=== PATIENT | female | born 1995 | race Caucasian/White ===

== ENCOUNTER 2020-12-31 12:36 | Outpatient (CLI) | payer OTHER, SELFPAY ==
[2020-12-31 13:12] LABS: Add Urine Microscopic? YES; Amorphous Sediment Urine Few; Appearance Urine Clear (Clear); Bacteria Urine Trace /hpf; Bilirubin Urine Negative (Negative); Blood Urine 2+ (Negative); Color Urine Amber (Yellow); Glucose Urine UA Negative (Negative); Ketones Urine Negative (Negative); Leukocyte Esterase Ur 1+ LEU/UL (NEGATIVE); Mucus Urine Rare /lpf; Nitrate Urine Positive (Negative); Protein Urine 1+ mg/dL (Negative); RBC Urine 21-50 /hpf (0-2); Specific Grav Ur 1.013 (1.001-1.035); Squamous Epithelial Cell Urine Rare /hpf (Few); WBC Urine 51-75 /hpf (0-3)
== END 2020-12-31 12:37 | disposition home or self-care (01) ==
LOC: ANHLAB 12:45
PROVIDERS: PCP Physician Assistant; Visit Provider Physician Assistant
DX: R31.9 Hematuria, unspecified (principal)
CPT/HCPCS: 81001; 87077; 87086; 87088; 87186

== ENCOUNTER → 2021-06-04 08:25 | Outpatient (CLI) | payer OTHER, SELFPAY ==
[2021-06-05 14:05] LABS: SARS-CoV-2 RNA PCR Positive
== END ==
PROVIDERS: PCP Physician Assistant; Visit Provider Physician Assistant
DX: U07.1 COVID-19 (principal)
CPT/HCPCS: C9803; U0003; U0005

== ENCOUNTER 2021-10-18 16:48 | Emergency (ER) | payer OTHER, SELFPAY ==
[2021-10-18 17:01] VITALS: BP 124/78; PULSE 88; RESP 16; TEMP 36.8; O2SAT 100
--- NOTE | 2021-10-18 17:25 | ED.FEMALEGU ---
HPI - Female Genitourinary General Chief complaint: Urogenital-Female Stated complaint: UTI Time Seen by Provider: 10/18/21 17:25 Source: patient Mode of arrival: ambulatory Limitations: no limitations History of Present Illness HPI Narrative: 26-year-old female presents with complaint of urinary frequency, urgency, dysuria since yesterday. Reports history of UTIs approximately every 3 to 6 months. States she only takes Macrobid for her UTIs due to penicillin and sulfa allergies. Denies fever chills. Denies back and abdominal pain. No nausea vomiting diarrhea. No concern for . All systems reviewed and negative except as noted. Related Data Home Medications Medication Instructions Recorded Confirmed norethin-ethinyl estradiol-iron 1 tablet PO DAILY 12/31/20 10/18/21 0.8 mg-25 mcg(24)/75 mg(4) chew tablet Allergies Allergy/AdvReac Type Severity Reaction Status Date / Time Sulfa (Sulfonamide Allergy Mild hives Verified 10/18/21 17:25 Antibiotics) ciprofloxacin Allergy Unknown unknown Verified 10/18/21 17:25 Penicillins Allergy Unknown unkown Verified 10/18/21 17:25 Review of Systems Review of Systems: CONSTITUTIONAL: Denies fever, chills, or sweats. EYES: Denies visual changes, redness, or discharge. ENT: Denies rhinorrhea, congestion, sore throat, or otalgia. CARDIOVASCULAR: Denies chest pain, palpitations, or edema. RESPIRATORY: Denies cough or dyspnea. GASTROINTESTINAL: Denies abdominal pain, nausea, vomiting, or diarrhea. GENITOURINARY: Reports dysuria, frequency and urgency. Denies hematuria. SKIN: Denies rash or itching. MUSCULOSKELETAL: Denies back pain, joint pain, or myalgia. NEUROLOGIC: Denies headache, numbness, or weakness. PSYCHIATRIC: Denies anxiety or depression. All other systems reviewed are negative, except as documented in HPI. [facility] Past Medical History Medical History Migraine Family History Family History Father Family history of diabetes mellitus in first degree relative Hypertension Sibling Anxiety Depression Other Diabetes mellitus Social History Social History (Reviewed 12/31/20 @ 11:53 by FRANCESCO Swenson Smoking status: Never smoker Second hand tobacco smoke exposure: No Alcohol intake: current Substance use: unknown Comments At time of signature, agree with nursing past medical, surgical, social and family history. There is no relevant family history pertinent to the presenting complaint. Exam Narrative: GENERAL: This is a well-nourished, well-developed patient, in no apparent distress. HEAD: normocephalic, atraumatic. EYES: PERRL. Sclera clear/white. Vision is grossly intact. EARS: External ears normal NOSE: External nose normal NECK: Neck supple, non-tender without lymphadenopathy, masses or thyromegaly. CARDIOVASCULAR: Regular rate and rhythm without murmurs, gallops, or rubs. RESPIRATORY: Clear to auscultation. Breath sounds equal bilaterally. No wheezes, rales, or rhonchi. SKIN: warm, Dry, intact with no suspicious lesions or rash, good texture and turgor. NEURO: awake, alert, and oriented to person, place and time. There were no obvious focal neurologic abnormalities. EXTREMITIES: Normal range of motion of all extremities. BACK: Nontender without deformity. No CVA tenderness. Course Course Level of Care: Express Care Visit Vital Signs Vital signs: Vital Signs Temperature 36.8 C 10/18/21 17:01 Pulse Rate 88 10/18/21 17:01 Respiratory Rate 16 10/18/21 17:01 Blood Pressure 124/78 10/18/21 17:01 Pulse Oximetry 100 10/18/21 17:01 Temperature 36.8 C 10/18/21 17:01 Pulse Rate 88 10/18/21 17:01 Respiratory Rate 16 10/18/21 17:01 Blood Pressure 124/78 10/18/21 17:01 Pulse Oximetry 100 10/18/21 17:01 Reviewed MDM - Female Genitourinary MDM Narrative Medical deci
== END 2021-10-18 17:33 | disposition home or self-care (01) ==
PROVIDERS: Emergency Provider Nurse Practitioner Family; PCP Internal Medicine
DX: N39.0 Urinary tract infection, site not specified (principal)
CPT/HCPCS: 81003; 87086; 87088; 99213; G0463

== ENCOUNTER 2021-12-08 11:28 | Outpatient (CLI) | payer OTHER, SELFPAY ==
[2021-12-08 11:49] LABS: Appearance Urine Slightly Cloudy (Clear); Bilirubin Urine Negative (Negative); Blood Urine 3+ (Negative); Glucose Urine UA Negative (Negative); Ketones Urine Negative (Negative); Leukocyte Esterase Ur 3+ LEU/UL (NEGATIVE); Nitrate Urine Negative (Negative); Protein Urine 2+ mg/dL (Negative); Specific Grav Ur 1.015 (1.001-1.035); Urobilinogen Urine 0.2 mg/dL (<2.0)
[2021-12-08 11:58] LABS: Bacteria Urine Trace /hpf; RBC Urine 51-75 /hpf (0-2); Squamous Epithelial Cell Urine Rare /hpf (Few); WBC Clumps Urine Present /HPF; WBC Urine >75 /hpf (0-3)
[2021-12-08 11:59] LABS: Add Urine Microscopic? YES; Color Urine Light Yellow (Yellow)
== END 2021-12-08 11:29 | disposition home or self-care (01) ==
LOC: ANHLAB 11:29
PROVIDERS: PCP Internal Medicine; Visit Provider Physician Assistant
DX: R30.0 Dysuria (principal)
CPT/HCPCS: 81001; 87077; 87086; 87186

== ENCOUNTER 2022-07-13 14:18 | Outpatient (CLI) | payer OTHER, SELFPAY ==
[2022-07-13 14:43] LABS: Appearance Urine Slightly Cloudy (Clear); Bilirubin Urine Negative (Negative); Blood Urine 1+ (Negative); Color Urine Light Yellow (Yellow); Glucose Urine UA Negative (Negative); Ketones Urine Negative (Negative); Leukocyte Esterase Ur 2+ LEU/UL (NEGATIVE); Nitrate Urine Negative (Negative); Protein Urine Negative (Negative); Urobilinogen Urine 0.2 mg/dL (<2.0)
[2022-07-13 15:02] LABS: Bacteria Urine Trace /hpf; RBC Urine 0-2 /hpf (0-2); Squamous Epithelial Cell Urine Occasional /hpf (Few)
[2022-07-13 15:04] LABS: Add Urine Microscopic? YES
== END 2022-07-13 14:19 | disposition home or self-care (01) ==
LOC: ANHLAB 14:20
PROVIDERS: PCP Physician Assistant; Visit Provider Physician Assistant
DX: R30.0 Dysuria (principal)
CPT/HCPCS: 81001; 87086

== ENCOUNTER 2022-08-06 11:03 | Outpatient (CLI) | payer OTHER, SELFPAY ==
[2022-08-06 11:50] LABS: Beta HCG Quantitative 280.88 mIU/ML
[2022-08-06 11:51] LABS: Strep Group A RT-PCR NOT DETECTED (Negative)
[2022-08-06 12:08] LABS: SARS-CoV-2 RNA PCR Negative
== END 2022-08-06 11:04 | disposition home or self-care (01) ==
LOC: ANHLAB 11:04
PROVIDERS: PCP Physician Assistant; Visit Provider Physician Assistant
DX: Z32.00 Encounter for pregnancy test, result unknown (principal); Z20.822 Contact with and (suspected) exposure to COVID-19
CPT/HCPCS: 84702; 87651; U0003; U0005

== ENCOUNTER 2024-01-16 14:57 | Outpatient (CLI) | payer OTHER, SELFPAY ==
[2024-01-16 16:08] LABS: Add Urine Microscopic? YES; Appearance Urine Clear (Clear); Bacteria Urine 1+ /hpf; Bilirubin Urine Negative (Negative); Blood Urine 2+ (Negative); Color Urine Yellow (Yellow); Glucose Urine UA Negative (Negative); Ketones Urine Negative (Negative); Leukocyte Esterase Ur 2+ LEU/UL (Negative); Nitrate Urine Negative (Negative); Non Pathogenic Casts 0-2; Protein Urine Negative (Negative); Specific Grav Ur 1.009 (1.001-1.035); Squamous Epithelial Cell Urine None Seen /hpf (Few); Urobilinogen Urine 0.2 mg/dL (<2.0); WBC Urine >100 /hpf (0-3)
== END 2024-01-16 14:58 | disposition home or self-care (01) ==
LOC: ANHLAB 15:01
PROVIDERS: PCP Physician Assistant; Visit Provider Internal Medicine
DX: R30.0 Dysuria (principal)
CPT/HCPCS: 81001; 87077; 87086; 87088; 87186